=== PATIENT | female | born 1990 | race American Indian/Alaskan Native ===

== ENCOUNTER 2017-11-02 17:30 | Inpatient (IN) | payer MEDICAID ==
[2017-11-02] MEDS ORDERED: LACTATED RINGERS 500 ML IV ONE (19:13)
[2017-11-02] MEDS ORDERED: TYLENOL PO PRN (23:50)
[2017-11-02] MEDS ORDERED: COLACE PO PRN (23:50)
[2017-11-02] MEDS ORDERED: MAGNESIUM SULFATE 4GM/100ML 4 GM/100 ML BAG IV ONE (23:53)
[2017-11-02] MEDS ORDERED: BRETHINE SUB-Q ONE (23:56)
[2017-11-02] MEDS ORDERED: BRETHINE ONE (23:57)
[2017-11-02 23:58] LABS: Bacteria,Urine 1+ /HPF (Negative); Bilirubin,Urine SM (Negative); Blood,Urine NEG (Negative); Mucus,Urine 3+ /HPF
[2017-11-03] LABS: Color,Urine Yellow (Yellow)
[2017-11-03 00:01] LABS: Ictotest,Urine Negative (Negative)
[2017-11-03] MEDS: CELESTONE SOLUSPAN IM SCH ×2 (00:15→23:54)
[2017-11-03] MEDS: MAGNESIUM SULFATE 40GM/1000ML 40 GM/1,000 ML BAG IV SCH ×2 (01:52→20:51)
[2017-11-03] MEDS: LACTATED RINGERS 1,000 ML IV SCH ×2 (01:55→17:18)
[2017-11-03 02:03] LABS: Basophils % (Auto) 0.2 % (0.0-1.8); Eosinophils # (Auto) 0.1 K/mm3 (0.0-0.4); Eosinophils % (Auto) 1.2 % (0.0-4.3); Hematocrit 31.4 % (30.3-42.9); Lymphocytes # (Auto) 2.1 K/mm3 (1.2-5.4); Lymphocytes % (Auto) 20.2 % (13.4-35.0); Mean Corpuscular HGB Conc 32 % (30-34); Mean Corpuscular Hemoglobin 24 pg (28-32); Mean Corpuscular Volume 77 fl (79-97); Monocytes % (Auto) 9.6 % (0.0-7.3); Platelet Count 252 K/mm3 (140-440); Red Blood Count 4.08 M/mm3 (3.65-5.03)
[2017-11-03] MEDS ORDERED: SUBLIMAZE IV ONE ×2 (05:31→09:35)
[2017-11-03] MEDS ORDERED: ZOFRAN IV ONE (05:32)
[2017-11-03] MEDS ORDERED: LACTATED RINGERS 500 ML IV ONE (09:03)
--- NOTE | 2017-11-03 09:15 | Ultrasound Report ---
ULTRASOUND OB LIMITED History: Presentation Technique: Transabdominal ultrasound with Doppler interrogation. Gestation: Twin A. Position: Cephalic Heart Rate: 131 BPM Gestation: Twin B. Position: Cephalic Heart Rate: 149 BPM
[2017-11-03] MEDS ORDERED: PRENATAL VITAMIN PO SCH (10:00)
--- NOTE | 2017-11-03 14:08 | History and Physical Report ---
History of Present Illness Date of admission: 11/03/17 01:58 Chief complaint: I'm having contractions Past History Past Medical History: no pertinent history Social history: single - Obstetrical History Expected Date of Delivery: 01/01/18 Actual Gestation: 31 Week(s) 4 Day(s) : 6 Number of Living Children: 1 Medications and Allergies Allergies Allergy/AdvReac Type Severity Reaction Status Date / Time No Known Allergies Allergy Verified 10/20/12 00:07 Home Medications Medication Instructions Recorded Confirmed Last Taken Type Ibuprofen [Motrin 600 MG tab] 600 mg PO Q6H PRN #30 tablet 10/21/12 Unknown Rx Labetalol [Normodyne TAB] 100 mg PO BID #60 tablet 10/21/12 Unknown Rx #103/Iron Fumarate/FA 1 each PO QDAY #30 tab 10/21/12 Unknown Rx [ ] Active Meds: Active Medications Acetaminophen (Tylenol) 650 mg PO Q4H PRN PRN Reason: Pain MILD(1-3)/Fever >100.5/BACK Betamethasone Acet/Betameth SodPhos (Celestone Soluspan) 12 mg IM Q24H IGNACIO Stop: 11/04/17 00:01 Last Admin: 11/03/17 00:15 Dose: 12 mg Docusate Sodium (Colace) 100 mg PO Q12H PRN PRN Reason: Constipation Lactated Ringer's (Lactated Ringers) 1,000 mls @ 125 mls/hr IV DIRECT IGNACIO Last Admin: 11/03/17 01:55 Dose: 75 mls/hr Magnesium Sulfate (Magnesium Sulfate 40gm/1000ml) 40 gm in 1,000 mls @ 50 mls/ hr IV DIRECT IGNACIO Last Admin: 11/03/17 01:52 Dose: 2 gm/hr, 50 mls/hr Multivitamins/Iron/Calcium ( Vitamin) 1 each PO QDAY IGNACIO Review of Systems All systems: negative Genitourinary: pelvic pain, contractions - Vital Signs Vital signs: Vital Signs Pulse BP 86 109/72 11/02/17 19:59 11/02/17 19:59 Temp Pulse Resp BP Pulse Ox 97.8 F 106 H 18 105/77 99 11/03/17 11:33 11/03/17 13:39 11/03/17 11:33 11/03/17 13:39 11/03/17 13:31 - Obstetrical Cervical Dilatation: 4 Cervical Effacement Percentage: 70 Results Result Diagrams: 11/03/17 00:00 Abnormal lab results 11/02/17 11/03/17 Range/Units 22:10 00:00 Hgb 10.0 L (10.1-14.3) gm/dl MCV 77 L (79-97) fl MCH 24 L (28-32) pg [place] % (Auto) 9.6 H (0.0-7.3) % [place] # 1.0 H (0.0-0.8) K/mm3 Urine WBC (Auto) 69.0 H (0.0-6.0) /HPF All other labs normal. Assessment and Plan Twin IUP at 31.4 weeks gestation in labor. Admit for inpatient management. Steroids ordered. Second dose to be given at midnight. Would d/c mag in am. NICU consult ordered. Continue bedrest and inpatient management
[2017-11-03] MEDS ORDERED: SUBLIMAZE ONE (16:01)
--- NOTE | 2017-11-03 16:29 | Consultation ---
History of Present Illness Consult date: 11/03/17 Reason for consult: prematurity (31 week twin gestation presenting with contractions) History of present illness: Met with mother and discussed the following: Need for NICU admission and minimal stimulation in the first few days of life Possible need for intubation and mechanical ventilation Need for UVC and UAC IVH and the need for HUS Common co morbidities in the NICU Importance of breast milk for feeding Mother expressed understanding and she was encouraged to call the NICU with further questions. [place] Documentation - Maternal Info Maternal Blood Type: A (+) positive - information: Height 5 ft 4 in Medications and Allergies Allergies Allergy/AdvReac Type Severity Reaction Status Date / Time No Known Allergies Allergy Verified 10/20/12 00:07 Home Medications Medication Instructions Recorded Confirmed Last Taken Type Ibuprofen [Motrin 600 MG tab] 600 mg PO Q6H PRN #30 tablet 10/21/12 Unknown Rx Labetalol [Normodyne TAB] 100 mg PO BID #60 tablet 10/21/12 Unknown Rx #103/Iron Fumarate/FA 1 each PO QDAY #30 tab 10/21/12 Unknown Rx [ ] Active Meds: Active Medications Acetaminophen (Tylenol) 650 mg PO Q4H PRN PRN Reason: Pain MILD(1-3)/Fever >100.5/BACK Betamethasone Acet/Betameth SodPhos ([place] Soluspan) 12 mg IM Q24H IGNACIO Stop: 11/04/17 00:01 Last Admin: 11/03/17 00:15 Dose: 12 mg Docusate Sodium (Colace) 100 mg PO Q12H PRN PRN Reason: Constipation Lactated Ringer's (Lactated Ringers) 1,000 mls @ 125 mls/hr IV DIRECT IGNACIO Last Admin: 11/03/17 01:55 Dose: 75 mls/hr Magnesium Sulfate (Magnesium Sulfate 40gm/1000ml) 40 gm in 1,000 mls @ 50 mls/ hr IV DIRECT IGNACIO Last Admin: 11/03/17 01:52 Dose: 2 gm/hr, 50 mls/hr Multivitamins/Iron/Calcium ( Vitamin) 1 each PO QDAY IGNACIO Exam Vital Signs Pulse BP 86 109/72 11/02/17 19:59 11/02/17 19:59 Temp Pulse Resp BP Pulse Ox 97.8 F 106 H 18 105/77 99 11/03/17 11:33 11/03/17 13:39 11/03/17 11:33 11/03/17 13:39 11/03/17 13:31 Results - Laboratory Findings 11/03/17 00:00 Abnormal lab results 11/02/17 11/03/17 Range/Units 22:10 00:00 Hgb 10.0 L (10.1-14.3) gm/dl MCV 77 L (79-97) fl MCH 24 L (28-32) pg [place] % (Auto) 9.6 H (0.0-7.3) % [place] # 1.0 H (0.0-0.8) K/mm3 Urine WBC (Auto) 69.0 H (0.0-6.0) /HPF Assessment and Plan Plan: Agree with steroids NICU will attend delivery Please call NICU with questions - Patient Problems (1) uterine contractions in third trimester, antepartum Current Visit: Yes Status: Acute
[2017-11-03] MEDS: STADOL IV PRN ×2 (17:15→20:49)
[2017-11-03] MEDS ORDERED: ROCEPHIN/NS 1 GM/50 ML 1 GM/50 ML BAG IV SCH (18:00)
[2017-11-03] MEDS ORDERED: POLYCILLIN/NS 2 GM/100 ML 2 GM/100 ML BAG IV SCH (23:45)
--- NOTE | 2017-11-03 23:49 | Event Note ---
Date: 11/03/17 Called by RN secondary to increasing frequency of contractions. IV pain medication not working well any longer (Fentanyl or Stadol). Cervix 5/100/-1. Pt in active labor. Plan to bolus for epidural. Verify vertex/vertex presentation. Continue to monitor clinically.
--- NOTE | 2017-11-04 00:40 | Ultrasound Report ---
FINAL REPORT PROCEDURE: US OB LIMITED TECHNIQUE: Real-time limited sonographic examination was performed for evaluation of position for each fetus with image documentation (1 or more fetuses). CPT 30700 HISTORY: Twin IUP at 31 wks, labor,check presentation COMPARISON: No prior studies are available for comparison. FINDINGS: This is a twin gestation. Twin a is in a cephalic presentation. The placenta is along the anterior uterus. heart rate 138 beats per minute. Twin B is in a cephalic presentation. heart rate 141 beats per minute. No further measurements are obtained. IMPRESSION: This is a twin gestation. Both fetuses are in cephalic presentation.
[2017-11-04] MEDS ORDERED: NARCAN 2 MG/2 ML IV PRN (01:15)
--- NOTE | 2017-11-04 01:15 | Anesthesia Consultation ---
Anesthesia Consult and Med Hx Date of service: 11/04/17 - Airway Anesthetic Teeth Evaluation: Good ROM Head & Neck: Adequate Mental/Hyoid Distance: Adequate Mallampati Class: Class II Intubation Access Assessment: Probably Good - Pulmonary Exam CTA: Yes - Cardiac Exam Cardiac Exam: RRR - Pre-Operative Health Status ASA Pre-Surgery Classification: ASA2 Proposed Anesthetic Plan: Epidural - Pulmonary Hx Asthma: No COPD: No Hx Pneumonia: No - Cardiovascular System Hx Hypertension: No - Central Nervous System Hx Seizures: No Hx Psychiatric Problems: No - Endocrine Hx Renal Disease: No Hx End Stage Renal Disease: No Hx Hypothyroidism: No Hx Hyperthyroidism: No - Hematic Hx Anemia: No Hx Sickle Cell Disease: No - Other Systems Hx Alcohol Use: No
[2017-11-04] MEDS: LACTATED RINGERS 1,000 ML IV SCH (01:33)
[2017-11-04] MEDS ORDERED: BENADRYL ONE (01:58)
[2017-11-04] MEDS ORDERED: fentaNYL-BUPIV 2 MCG/ML-0.125% 200 MCG/100 ML BAG EPIDURAL SCH (02:00)
[2017-11-04] MEDS ORDERED: BENADRYL IV ONE (02:19)
[2017-11-04] MEDS ORDERED: BRETHINE IVP PRN (03:19)
[2017-11-04] MEDS ORDERED: ZOFRAN IV PRN ×2 (03:19→09:09)
[2017-11-04] MEDS ORDERED: BRETHINE SUB-Q PRN (03:19)
[2017-11-04] MEDS ORDERED: SUBLIMAZE IV PRN (03:19)
[2017-11-04] MEDS ORDERED: MINERAL OIL PO PRN (03:19)
[2017-11-04] MEDS ORDERED: NARCAN 0.4 MG/1 ML IV PRN (03:19)
[2017-11-04] MEDS ORDERED: XYLOCAINE 2% INFILTRATI ONE (03:19)
--- NOTE | 2017-11-04 03:19 | Event Note ---
Date: 11/04/17 Pt comfortable with epidural. Category II tracing. SVE: 6/100/0. AROM- clear fluid. Begin Pitocin augmentation. Closely monitor maternal and status.
[2017-11-04] MEDS ORDERED: PITOCin/NS 30 UNIT/500ML 30 UNITS/500 ML BAG IV SCH (03:22)
[2017-11-04] MEDS ORDERED: LACTATED RINGERS 1,000 ML IV SCH (04:00)
[2017-11-04] MEDS ORDERED: AMPICILLIN/NS 1 GM/50 ML 1 GM/50 ML BAG IV SCH (04:00)
[2017-11-04] MEDS ORDERED: PITOCin/NS 20 UNIT/1000ML DRIP 20 UNITS/1,000 ML BAG IV SCH ×2 (04:00→09:09)
[2017-11-04] MEDS ORDERED: METHERGINE IM ONE (06:19)
--- NOTE | 2017-11-04 06:31 | Procedure Note ---
OB Delivery Note - Delivery Date of Delivery: 11/04/17 Surgeon: KIKO YAO Estimated blood loss: 500cc - Vaginal Delivery presentation: vertex Delivery position: OA Intrapartum events: PROM->1hr before delivery, uterine atony Delivery induction: none Delivery augmentation: rupture of membranes, pitocin Delivery monitor: external FHT, external uterine Route of delivery: Delivery placenta: spontaneous Delivery cord: nuchal cord (Twin A), 3 umbilical vessels Episiotomy: none Delivery laceration: other (Bialteral periurethral lacerations ) Anesthesia: epidural Delivery comments: Pt progressed to complete/complete/+2 and pushed to deliver a viable male via under epidural anesthesia. Head delivered rapidly, nuchal cord delivered through, quickly followed by shoulders and body. Delayed cord clamp. bulb suctioned. Cord clamped and cut and handed to NICU staff in attendance. Ultrasound used to confirm cephalic presentation of Twin B. AROM- clear fluid. Head delivered rapidly followed by shoulders and body. bulb suctioned. Cord clamped and cut and handed to NICU staff in attendance. Placenta delivered spontaneously (3VC x 2, intact, cord clamp on Placenta A). Uterus somewhat atonic despite uterine massage and Pitocin administration. Methergine 0.2 mg IM administered. Uterine tone much improved. EBL 500 mL. - A at 1 minute: 8 at 5 minutes: 9 Infant Gender: Male (1619g (3lb 9oz) @ 0601 am) B at 1 minute: 3 at 5 minutes: 7 Infant Gender: Female (1455g (3lb 3 oz) @ 0607 am)
[2017-11-04] MEDS ORDERED: PHENERGAN PR PRN (09:09)
[2017-11-04] MEDS ORDERED: BENADRYL PO PRN (09:09)
[2017-11-04] MEDS ORDERED: SODIUM CHLORIDE FLUSH SYRINGE 10 ML IV NR (09:09)
[2017-11-04] MEDS ORDERED: DERMOPLAST TP PRN (09:09)
[2017-11-04] MEDS ORDERED: LANSINOH TP PRN ×2 (09:09)
[2017-11-04] MEDS ORDERED: TUCKS PAD TP PRN (09:09)
[2017-11-04] MEDS ORDERED: PHENERGAN PO PRN (09:09)
[2017-11-04] MEDS: NORCO 5/325 PO PRN ×2 (09:57→17:24)
[2017-11-04] MEDS ORDERED: DULCOLAX PR PRN (10:00)
[2017-11-04] MEDS: FEOSOL PO SCH ×2 (12:43→22:00)
[2017-11-04] MEDS: PRENATAL VITAMIN PO SCH (12:43)
[2017-11-04] MEDS: MOTRIN PO SCH ×2 (12:43→22:00)
[2017-11-04 21:10] LABS: Hematocrit 29.1 % (30.3-42.9); Hemoglobin 9.1 gm/dl (10.1-14.3)
[2017-11-04] MEDS ORDERED: MILK OF MAGNESIA PO PRN (22:00)
[2017-11-05] MEDS: MOTRIN PO SCH ×3 (05:18→18:35)
[2017-11-05] MEDS ORDERED: M-M-R II VACCINE SUB-Q ONE (06:00)
[2017-11-05] MEDS ORDERED: BOOSTRIX IM ONE (06:00)
[2017-11-05] MEDS: TYLENOL PO PRN (09:11)
[2017-11-05] MEDS: FEOSOL PO SCH ×2 (10:30→21:25)
[2017-11-05] MEDS: PRENATAL VITAMIN PO SCH (10:31)
--- NOTE | 2017-11-05 13:00 | Progress Note ---
Assessment and Plan A; PPD#1 s/p at 31 wks, Di-Di twin delivery Constipation P: Scheduled Milk of [place] until bowel movement. Encourage ambulation. Anticipate discharge tomorrow. Subjective - Subjective Date of service: 11/05/17 Principal diagnosis: s/p delivery of twins at 31 wks Interval history: Pt reports abdominal and back pain as well as constipation. She asks for medicine to make her have a bowel movement. Patient reports: appetite normal, voiding normally, ambulating normally, no bowel movement [place]: in NICU Objective - Vital Signs Latest vital signs: Vital Signs Temp Pulse Resp BP BP Pulse Ox 11/05/17 08:19 98.8 F 61 20 110/59 97 11/05/17 01:25 98.6 F 62 20 110/57 100 11/04/17 17:04 99.0 F 62 20 133/77 99 Intake and Output 11/04/17 11/05/17 11/05/17 22:59 06:59 14:59 Intake Total 120 240 120 Balance 120 240 120 Intake: Oral 120 240 120 Other: Total, Intake Amount 120 240 120 # Voids Void 1 1 1 - Exam Breasts: Present: deferred Cardiovascular: Present: Regular rate Lungs: Present: Clear to auscultation Abdomen: Present: distention (moderate ) Uterus: Present: fundal height below umbilicus Extremities: Present: edema - Labs Labs: Abnormal lab results 11/04/17 Range/Units 20:48 Hgb 9.1 L (10.1-14.3) gm/dl Hct 29.1 L (30.3-42.9) %
[2017-11-05] MEDS: MILK OF MAGNESIA PO SCH ×2 (18:37→21:30)
[2017-11-05] MEDS: NORCO 5/325 PO PRN (21:25)
[2017-11-06] MEDS: MOTRIN PO SCH ×3 (04:28→18:31)
[2017-11-06] MEDS: FEOSOL PO SCH (10:26)
[2017-11-06] MEDS: PRENATAL VITAMIN PO SCH (10:26)
[2017-11-06] MEDS: TYLENOL PO PRN (10:30)
--- NOTE | 2017-11-06 18:09 | Progress Note ---
Assessment and Plan PPD 2 s/p twin at 31.3 weeks. Doing well. Plan for discharge on today. Subjective - Subjective Date of service: 11/06/17 Principal diagnosis: s/p delivery of twins at 31 wks Patient reports: appetite normal, voiding normally, pain well controlled, bowel movement, ambulating normally [place]: in NICU Objective - Vital Signs Latest vital signs: Vital Signs Temp Pulse Resp BP BP Pulse Ox 11/06/17 16:00 97.9 F 72 20 127/67 11/06/17 12:47 18 11/06/17 12:19 98.3 F 61 20 138/89 100 11/06/17 10:30 20 11/06/17 00:07 98.2 F 65 18 112/56 98 Intake and Output 11/06/17 11/06/17 11/06/17 06:59 14:59 22:59 Intake Total 480 Balance 480 Intake: Intake, Free Water 480 Other: # Voids Void 2 - Exam Breasts: Present: normal Cardiovascular: Present: Regular rate, Normal S1, Normal S2 Lungs: Present: Clear to auscultation, Normal air movement Abdomen: Present: normal appearance, soft Extremities: Present: edema Incision: Present: normal, dry, intact
--- NOTE | 2017-11-06 18:10 | Discharge Summary ---
Providers - Providers Date of Admission: 11/03/17 01:58 Date of discharge: 11/06/17 Attending physician: SLAVA BRADLEY 11/03/17 09:03 Consult to Physician [CONS] Routine Comment: Consulting Provider: LOBITO LEAVITT Physician Instructions: Reason For Exam: labor 11/04/17 09:09 Consult to Supervisor [employer] [CONS] Routine Reason For Exam: assistance with , SNS Primary care physician: SLAVA BRADLEY Hospitalization Reason for admission: labor Delivery: Episiotomy: none Laceration: none complications: none baby: twins Hospital course: patient delivered premature twins Condition at discharge: Good Disposition: DC-01 TO HOME OR SELFCARE Plan - Discharge Medications Prescriptions: Ferrous Sulfate [Feosol 325 MG tab] 325 mg PO BID #60 tablet HYDROcodone/APAP 5-325 [[place] 5/325] 1 each PO Q6HR PRN #20 tablet PRN Reason: Pain Ibuprofen [Motrin] 800 mg PO Q8HR PRN #30 tablet PRN Reason: Pain, Moderate (4-6) - Provider Discharge Summary Activity: routine, no sex for 6 weeks, no heavy lifting 4 weeks, no strenuous exercise Diet: routine Instructions: routine Additional instructions: [] Smoking cessation referral if applicable(refer to patient education folder for contact #) [] Refer to [facility] Booklet Call your doctor immediately for: * Fever > 100.5 * Heavy vaginal bleeding ( >1 pad per hour) * Severe persistent headache * Shortness of breath * Reddened, hot, painful area to leg or breast * Drainage or odor from incision. * Keep incision clean and dry at all times and follow doctor's instructions regarding bathing/showering - Follow up plan Follow up: SLAVA BRADLEY MD [Primary Care Provider] - 6 Weeks
[2017-11-06 21:03] VITALS: BP 142/79
== END 2017-11-06 21:10 | disposition home or self-care (01) | DRG 775 ==
LOC: TRG 17:30 → LD 11-03 01:58 → OB 11-04 08:52
PROVIDERS: ADMIT Obstetrics & Gynecology; ATTEND Obstetrics & Gynecology
PROC: 10E0XZZ Delivery of Products of Conception, External Approach (ICD-10-PCS; principal; 2017-11-04)
PROC: 0UQMXZZ Repair Vulva, External Approach (ICD-10-PCS; 2017-11-04)
PROC: 3E0R3BZ Introduction of Anesthetic Agent into Spinal Canal, Percutaneous Approach (ICD-10-PCS; 2017-11-04)
PROC: 00HU33Z Insertion of Infusion Device into Spinal Canal, Percutaneous Approach (ICD-10-PCS; 2017-11-04)
PROC: 3E0234Z Introduction of Serum, Toxoid and Vaccine into Muscle, Percutaneous Approach (ICD-10-PCS; 2017-11-05)
DX: O60.14X2 Preterm labor third trimester with preterm delivery third trimester, fetus 2 (principal); O60.14X1 Preterm labor third trimester with preterm delivery third trimester, fetus 1; O30.003 Twin pregnancy, unspecified number of placenta and unspecified number of amniotic sacs, third trimester; Z3A.31 31 weeks gestation of pregnancy; Z37.2 Twins, both liveborn; Z23 Encounter for immunization; O71.82 Other specified trauma to perineum and vulva; O69.81X1 Labor and delivery complicated by cord around neck, without compression, fetus 1; O75.89 Other specified complications of labor and delivery; K59.00 Constipation, unspecified
CPT/HCPCS: 36415; 76815; 81001; 82731; 85014; 85018; 85025; 86850; 86900; 86901; 87086; 88307; 90471; 90715; 99211; G0463; J0290; J0595; J0696; J0702; J1200; J2210; J2405; J2590; J3010; J3105; J3475; J7120

== ENCOUNTER 2017-11-10 13:14 | Inpatient (IN) | payer MEDICAID ==
[2017-11-10] MEDS ORDERED: MAGNESIUM SULFATE 40GM/1000ML 40 GM/1,000 ML BAG IV SCH (15:00)
[2017-11-10 15:24] LABS: Hematocrit 31.8 % (30.3-42.9); Mean Corpuscular HGB Conc 31 % (30-34); Mean Corpuscular Volume 78 fl (79-97); Platelet Count 314 K/mm3 (140-440); Red Blood Count 4.09 M/mm3 (3.65-5.03); Red Cell Distribution Width 15.9 % (13.2-15.2)
[2017-11-10 15:31] LABS: Mean Corpuscular Hemoglobin 24 pg (28-32)
[2017-11-10 15:39] LABS: Bacteria,Urine 1+ /HPF (Negative); Bilirubin,Urine NEG (Negative); Blood,Urine LG (Negative); Color,Urine Yellow (Yellow); Mucus,Urine FEW /HPF; Urobilinogen,Urine < 2.0 mg/dL (<2.0)
[2017-11-10 15:40] LABS: RBC,Urine > 182.0 /HPF (0.0-6.0)
[2017-11-10 15:51] LABS: Alanine Aminotransferase 34 units/L (7-56); Albumin 3.1 g/dL (3.9-5); BUN/Creatinine Ratio 20; Blood Urea Nitrogen 10 mg/dL (7-17); Calcium 8.4 mg/dL (8.4-10.2); Hemolysis Index 15
[2017-11-10 15:58] LABS: Bilirubin,Direct < 0.2 mg/dL (0-0.2)
[2017-11-10] MEDS: NORCO 5/325 PO PRN (16:00)
[2017-11-10] MEDS: LACTATED RINGERS 1,000 ML IV SCH (16:03)
[2017-11-10] MEDS: MAGNESIUM SULFATE 40GM/1000ML 40 GM/1,000 ML BAG IV SCH (16:04)
--- NOTE | 2017-11-10 20:03 | History and Physical Report ---
History of Present Illness Date of examination: 11/10/17 Date of admission: 11/10/17 13:45 Chief complaint: My blood pressure is high History of present illness: Patient is a 27 year old who presents to [facility] from the office today with complaint of severe headache and elevated blood pressure. Patient delivered twins at 32 weeks last Monday. She was discharged home on Monday and now presents with complaint of headache and was found to have elevated bp on exam. Past History Past Medical History: no pertinent history Family/Genetic History: none Social history: single - Obstetrical History : 6 Medications and Allergies Allergies Allergy/AdvReac Type Severity Reaction Status Date / Time No Known Allergies Allergy Verified 10/20/12 00:07 Home Medications Medication Instructions Recorded Confirmed Last Taken Type Ibuprofen [Motrin 600 MG tab] 600 mg PO Q6H PRN #30 tablet 10/21/12 Unknown Rx Labetalol [Normodyne TAB] 100 mg PO BID #60 tablet 10/21/12 Unknown Rx #103/Iron Fumarate/FA 1 each PO QDAY #30 tab 10/21/12 Unknown Rx [ ] Ferrous Sulfate [Feosol 325 MG tab] 325 mg PO BID #60 tablet 11/05/17 Unknown Rx HYDROcodone/APAP 5-325 [[place] 1 each PO Q6HR PRN #20 tablet 11/05/17 Unknown Rx 5/325] Ibuprofen [Motrin] 800 mg PO Q8HR PRN #30 tablet 11/05/17 Unknown Rx Active Meds: Active Medications Acetaminophen/Hydrocodone Bitart ([place] 5/325) 2 each PO Q4H PRN PRN Reason: Pain, Moderate (4-6) Last Admin: 11/10/17 16:00 Dose: 2 each Lactated Ringer's (Lactated Ringers) 1,000 mls @ 125 mls/hr IV DIRECT IGNACIO Last Admin: 11/10/17 16:03 Dose: 75 mls/hr Magnesium Sulfate (Magnesium Sulfate 40gm/1000ml) 40 gm in 1,000 mls @ 50 mls/ hr IV DIRECT IGNACIO Last Admin: 11/10/17 16:04 Dose: 2 gm/hr, 50 mls/hr Magnesium Sulfate (Magnesium Sulfate 40gm/1000ml) 40 gm in 1,000 mls @ 1,250 mls/hr IV DIRECT IGNACIO Ibuprofen (Motrin) 800 mg PO Q8H PRN PRN Reason: Pain, Mild (1-3) Multivitamins/Iron/Calcium ( Vitamin) 1 each PO QDAY IGNACIO Nifedipine (Procardia Xl) 60 mg PO Q12HR IGNACIO Review of Systems All systems: negative Gastrointestinal: abdominal pain Genitourinary: deferred Neurological: headaches - Vital Signs Vital signs: Vital Signs Resp 20 11/10/17 16:00 Temp Pulse Resp BP Pulse Ox 97.8 F 65 20 152/91 100 11/10/17 18:14 11/10/17 16:06 11/10/17 18:14 11/10/17 18:14 11/10/17 16:06 - Physical Exam Breasts: Cardiovascular: Regular rate, Normal S1, Normal S2 Lungs: Positive: Clear to auscultation, Normal air movement Abdomen: Positive: normal appearance, soft, normal bowel sounds. Negative: distention, tenderness Genitourinary (Female): Positive: normal external genitalia, normal perenium Vulva: both: normal Vagina: Positive: normal moisture. Negative: discharge Cervix: Negative: lesion, discharge Uterus: Positive: normal size, normal contour Adnexa: both: normal Anus/Rectum: Positive: normal perianal skin, heme negative. Negative: rectal mass, hemorrhoids Extremities: Deep Tendon Reflex Grade: Normal but brisk +3 Results Result Diagrams: 11/10/17 15:07 11/10/17 15:07 Abnormal lab results 11/10/17 11/10/17 11/10/17 Range/Units 15:07 15:07 15:07 Hgb 10.0 L (10.1-14.3) gm/dl MCV 78 L (79-97) fl MCH 24 L (28-32) pg [place] 15.9 H (13.2-15.2) % Potassium 3.5 L (3.6-5.0) mmol/L Creatinine 0.5 L (0.7-1.2) mg/dL Uric Acid 2.3 L (3.5-7.6) mg/dL Albumin 3.1 L (3.9-5) g/dL Urine WBC (Auto) (0.0-6.0) /HPF 11/10/17 Range/Units Unknown Hgb (10.1-14.3) gm/dl MCV (79-97) fl MCH (28-32) pg RDW (13.2-15.2) % Potassium (3.6-5.0) mmol/L Creatinine (0.7-1.2) mg/dL Uric Acid (3.5-7.6) mg/dL Albumin (3.9-5) g/dL Urine WBC (Auto) 136.0 H (0.0-6.0) /HPF All other labs normal. Assessment and Plan PPD 6 here for admission due to post preeclampsia. Will admit and treat with magnesium for seizure prophylaxis. Will also begin Procardia for blood pressure control.
[2017-11-10] MEDS: PROCARDIA XL PO SCH (22:13)
[2017-11-10] MEDS: MOTRIN PO PRN (23:59)
[2017-11-11] MEDS: LACTATED RINGERS 1,000 ML IV SCH (03:19)
[2017-11-11] MEDS: MAGNESIUM SULFATE 40GM/1000ML 40 GM/1,000 ML BAG IV SCH (06:06)
[2017-11-11] MEDS: PROCARDIA XL PO SCH ×2 (10:06→21:28)
[2017-11-11] MEDS: PRENATAL VITAMIN PO SCH (10:06)
[2017-11-11] MEDS: MOTRIN PO PRN (15:12)
[2017-11-11] MEDS: NORCO 5/325 PO PRN (23:09)
[2017-11-12] MEDS: PROCARDIA XL PO SCH (09:52)
--- NOTE | 2017-11-12 10:00 | Progress Note ---
Assessment and Plan HD 2 and PPD 8 from vaginal delivery of twins with post preeclampsia. BP now in normal range. Mag has been off since yesterday afternoon. Plan for discharge on today. Subjective - Subjective Date of service: 11/12/17 Interval history: Patient is a 27 year old who presents to [facility] from the office today with complaint of severe headache and elevated blood pressure. Patient delivered twins at 32 weeks last Monday. She was discharged home on Monday and now presents with complaint of headache and was found to have elevated bp on exam. Patient reports: appetite normal, voiding normally, pain well controlled, ambulating normally, other (headache resolved) : in NICU Objective - Vital Signs Latest vital signs: Vital Signs Temp Pulse Resp BP BP Pulse Ox 11/12/17 07:44 98.5 F 69 18 116/77 98 11/12/17 05:22 98.6 F 78 18 112/68 97 11/12/17 01:13 98.0 F 74 18 116/63 11/12/17 01:10 98.5 F 70 18 109/71 99 11/12/17 00:51 18 11/11/17 23:09 18 11/11/17 21:15 98.8 F 87 18 108/69 99 11/11/17 17:59 97.6 F 87 18 110/69 100 11/11/17 14:43 98.2 F 100 H 18 112/68 97 11/11/17 10:19 98.3 F 101 H 18 111/72 98 Intake and Output 11/11/17 11/12/17 11/12/17 22:59 06:59 14:59 Output Total 400 Balance -400 Output: Urine 400 Indwelling Catheter 400 Other: Total, Output Amount 400 Voiding Method Toilet - Exam Cardiovascular: Present: Regular rate, Normal S1, Normal S2 Lungs: Present: Clear to auscultation, Normal air movement Abdomen: Present: normal appearance, soft Extremities: Present: normal Deep Tendon Reflex Grade: Normal +2
--- NOTE | 2017-11-12 10:24 | Discharge Summary ---
Providers - Providers Date of Admission: 11/10/17 13:45 Date of discharge: 11/12/17 Attending physician: SLAVA BRADLEY Primary care physician: SLAVA BRADLEY Hospitalization Reason for admission: other (post preeclampsia) Episiotomy: none complications: other (elevated blood pressure) Hospital course: Issue now resolved Condition at discharge: Good Disposition: DC-01 TO HOME OR SELFCARE Plan - Provider Discharge Summary Activity: routine Diet: routine Instructions: routine Additional instructions: [] Smoking cessation referral if applicable(refer to patient education folder for contact #) [] Refer to [facility] Booklet Call your doctor immediately for: * Fever > 100.5 * Heavy vaginal bleeding ( >1 pad per hour) * Severe persistent headache * Shortness of breath * Reddened, hot, painful area to leg or breast * Drainage or odor from incision. * Keep incision clean and dry at all times and follow doctor's instructions regarding bathing/showering - Follow up plan Follow up: SLAVA BRADLEY MD [Primary Care Provider] - 7 Days
[2017-11-12] MEDS: PRENATAL VITAMIN PO SCH (10:27)
[2017-11-12 12:08] VITALS: BP 107/70
== END 2017-11-12 13:00 | disposition home or self-care (01) | DRG 776 ==
LOC: UNDOADMIN 13:14 → 3A 13:14 → OB 13:45
PROVIDERS: ADMIT Obstetrics & Gynecology; ATTEND Obstetrics & Gynecology
DX: O14.95 Unspecified pre-eclampsia, complicating the puerperium (principal); O16.5 Unspecified maternal hypertension, complicating the puerperium; Z79.899 Other long term (current) drug therapy
CPT/HCPCS: 36415; 80048; 80074; 81001; 83735; 84550; 85027; J3475; J7120